=== PATIENT | female | born 1980 | race Caucasian/White ===

== ENCOUNTER 2021-11-26 13:42 | Emergency (ER) | payer OTHER ==
[~2021-11-26] VITALS: Ht 172.7 cm; Wt 175.0 kg
[2021-11-26 17:27] VITALS: BP 138/75; PULSE 81; TEMP 97.9
== END 2021-11-26 17:27 | disposition home or self-care (01) ==
LOC: COL.ER 13:42
DX: R51.9 Headache, unspecified (principal); R11.0 Nausea
CPT/HCPCS: J1200; J2250; J2765; J7030